=== PATIENT | female | born 1985 | race Caucasian/White ===

== ENCOUNTER 2017-07-11 12:59 | Emergency (ER) | payer SELFPAY ==
[~2017-07-11] VITALS: Ht 170.2 cm; Wt 105.7 kg
[2017-07-11 13:20] LABS: HEMATOCRIT 39.7 % (36.0-46.0); MCH 30.8 PG (29.0-34.0); MCHC 33.5 G/DL (30.0-36.0); MCV 91.9 FL (83-99); MEAN PLAT.VOLUME 10.7 uM^3 (9.5-12.4); PLATELET COUNT 252 K/uL (156-360); RBC DIS.WIDTH-CV 13.1 % (11.8-14.6); RBC DIS.WIDTH-SD 44.1 % (39-53); RED BLOOD COUNT 4.32 M/uL (3.80-5.20); WHITE BLOOD COUNT 7.4 K/uL (4.1-10.2)
[2017-07-11 13:30] LABS: CHLORIDE 107 mEq/L (99-109); POTASSIUM 3.4 mEq/L (3.7-5.4); SODIUM 140 mEq/L (136-147)
[2017-07-11 13:32] LABS: GLUCOSE 112 mg/dL (70-99)
[2017-07-11 13:34] LABS: ANION GAP 5 MEQ/L (2-14)
[2017-07-11 13:37] LABS: UREA NITROGEN (BUN) 8 mg/dL (9-23)
[2017-07-11 13:42] LABS: GFR ESTIMATE (CALCULATED) > 59 mL/min/
[2017-07-11 15:33] LABS: ADD MIUA? YES; BILIRUBIN NEGATIVE; BLOOD NEGATIVE; COLOR YELLOW ((YELLOW)); GLUCOSE (STRIP) NEGATIVE; KETONES NEGATIVE; LEUKOCYTES MODERATE; NITRITE NEGATIVE; PROTEIN (STRIP) NEGATIVE; SPECIFIC GRAVITY 1.012 (1.000-1.030); UROBILINOGEN 0.2 MG/DL (0.2-1.0)
[2017-07-11 16:14] LABS: AMORPHOUS URATES CRYSTALS 2+; BACTERIA RARE /HPF; CASTS NONE SEEN /LPF; CRYSTALS PRESENT; EPITHELIAL CELLS 1+ /HPF; MUCUS TRACE /LPF; RED BLOOD CELLS 0-5 /HPF (0-5); UCUL ADDED? YES
[2017-07-11 16:42] LABS: QUANTITATIVE HCG < 4.0 MIU/ML
[2017-07-11 17:06] VITALS: BP 126/93
== END 2017-07-11 17:07 | disposition home or self-care (01) ==
LOC: EME 12:59
DX: R51 Headache (principal); R10.9 Unspecified abdominal pain; Z87.442 Personal history of urinary calculi
CPT/HCPCS: 74000; 80048; 81003; 84702; 85027; 87086; 99281; 99284; J0780; J1200; J2765; J3010; J7030

== ENCOUNTER 2017-07-19 11:43 | Emergency (ER) | payer SELFPAY ==
[~2017-07-19] VITALS: Ht 170.2 cm; Wt 106.0 kg
[2017-07-19 14:56] LABS: EOSINOPHIL (%) 1.5 % (0-5); EOSINOPHIL COUNT 0.1 K/uL (0-0.3); HEMATOCRIT 42.9 % (36.0-46.0); IMMATURE GRANULOCYTE (%) 0.5 % (0.0-0.7); INSTRUMENT ABS NEUTROPHIL CT 5.1 K/uL; LYMPHOCYTE COUNT 2.4 K/uL (1.0-2.8); MCH 30.5 PG (29.0-34.0); MCHC 33.3 G/DL (30.0-36.0); MCV 91.5 FL (83-99); MEAN PLAT.VOLUME 11.6 uM^3 (9.5-12.4); MONOCYTE COUNT 0.3 K/uL (0-0.8); NEUTROPHIL (%) 63.2 % (45-76); NEUTROPHIL COUNT 5.1 K/uL (1.8-6.4); PLATELET COUNT 279 K/uL (156-360); RBC DIS.WIDTH-CV 13.1 % (11.8-14.6); RBC DIS.WIDTH-SD 43.4 % (39-53); RED BLOOD COUNT 4.69 M/uL (3.80-5.20)
[2017-07-19 15:09] LABS: ADD MIUA? YES; BILIRUBIN NEGATIVE; BLOOD NEGATIVE; COLOR YELLOW ((YELLOW)); GLUCOSE (STRIP) NEGATIVE; KETONES NEGATIVE; LEUKOCYTES TRACE; NITRITE NEGATIVE; PROTEIN (STRIP) 30; SPECIFIC GRAVITY 1.017 (1.000-1.030); UROBILINOGEN 0.2 MG/DL (0.2-1.0)
[2017-07-19 15:12] LABS: CHLORIDE 104 mEq/L (99-109)
[2017-07-19 15:13] LABS: POTASSIUM 4.6 mEq/L (3.7-5.4); SODIUM 138 mEq/L (136-147)
[2017-07-19 15:14] LABS: BACTERIA RARE /HPF; EPITHELIAL CELLS 1+ /HPF; MUCUS TRACE /LPF; RED BLOOD CELLS 0-5 /HPF (0-5); UCUL ADDED? YES
[2017-07-19 15:15] LABS: GLUCOSE 97 mg/dL (70-99)
[2017-07-19 15:16] LABS: ANION GAP 11 MEQ/L (2-14)
[2017-07-19 15:17] LABS: TOTAL BILIRUBIN 0.3 mg/dL (0.0-1.0)
[2017-07-19 15:18] LABS: ALKALINE PHOSPHATASE 59 IU/L (3-129); GFR ESTIMATE (CALCULATED) > 59 mL/min/
[2017-07-19 15:20] LABS: UREA NITROGEN (BUN) 5 mg/dL (9-23)
[2017-07-19 15:22] LABS: LIPASE 17 U/L (1.0-51.0)
[2017-07-19 15:28] LABS: QUANTITATIVE HCG < 4.0 MIU/ML
[2017-07-19] MEDS ORDERED: ZOFRAN4 MG PO (16:06)
[2017-07-19] MEDS ORDERED: KEFLEX500 MG PO (16:06)
[2017-07-19 16:12] VITALS: BP 108/52
== END 2017-07-19 16:36 | disposition home or self-care (01) ==
LOC: EME 11:43
PROVIDERS: Emergency Medicine
DX: N39.0 Urinary tract infection, site not specified (principal); R11.2 Nausea with vomiting, unspecified; R19.7 Diarrhea, unspecified; Z87.442 Personal history of urinary calculi
CPT/HCPCS: 80053; 81003; 83690; 84702; 85025; 87086; 99281; 99285; J1630; J7030